=== PATIENT | male | born 1970 | race Caucasian/White ===

== ENCOUNTER 2017-03-10 08:41 | Day surgery (SDC) | payer OTHER ==
[~2017-03-10] VITALS: Ht 190.5 cm; Wt 168.0 kg
[~2017-03-10 08:41] MED LIST: HYDR30CR57 RC; SODIUM CHLORIDE 0.9% 1,000 ML IV ONE
[2017-03-10] MEDS ORDERED: METOCLOPRAMIDE HCL 5 MG/ML 2 ML VIAL IVP ONE (08:42)
[2017-03-10] MEDS ORDERED: PROPOFOL 1% 20 ML VIAL IVP ONE (08:42)
[2017-03-10] MEDS ORDERED: ONDANSETRON HCL 4 MG/2 ML VIAL IVP ONE (08:42)
[2017-03-10] MEDS ORDERED: LIDOCAINE HCL/PF 2% 5 ML VIAL IM ONE (08:42)
[2017-03-10] MEDS ORDERED: SODIUM CHLORIDE 0.9% 1,000 ML IV ONE (08:55)
[2017-03-10] MEDS ORDERED: FentaNYL CITRATE-PF 100 MCG/2 ML VIAL IVP PRN (11:30)
[2017-03-10] MEDS ORDERED: OXYGEN THERAPY IH SCH (11:30)
== END 2017-03-10 11:50 | disposition home or self-care (01) ==
LOC: SURGERY 08:41
PROVIDERS: ATTEND Internal Medicine Gastroenterology
DX: K62.1 Rectal polyp (principal); K64.2 Third degree hemorrhoids; K21.9 Gastro-esophageal reflux disease without esophagitis; E89.0 Postprocedural hypothyroidism; G47.33 Obstructive sleep apnea (adult) (pediatric); E66.9 Obesity, unspecified; F17.210 Nicotine dependence, cigarettes, uncomplicated; Z98.890 Other specified postprocedural states; Z87.898 Personal history of other specified conditions
CPT/HCPCS: 45380; 88305; J2405; J2704; J2765; J3490; J7030

== ENCOUNTER 2020-01-07 08:50 | Day surgery (SDC) | payer OTHER ==
[~2020-01-07] VITALS: Ht 193 cm; Wt 180.0 kg
[~2020-01-07 08:50] MED LIST changes: -SODIUM CHLORIDE 0.9% 1,000 ML IV ONE; +SODIUM CHLORIDE 0.9% 1,000 ML ONE
[2020-01-07] MEDS ORDERED: PROPOFOL 1% 20 ML VIAL IVP ONE (08:51)
[2020-01-07] MEDS ORDERED: LIDOCAINE/PF 2% 5 ML VIAL IM ONE (08:51)
[2020-01-07] MEDS ORDERED: SODIUM CHLORIDE 0.9% 1,000 ML IV ONE (09:00)
== END 2020-01-07 11:50 | disposition home or self-care (01) ==
LOC: SURGERY 08:50
PROVIDERS: ATTEND Internal Medicine Gastroenterology
DX: K29.50 Unspecified chronic gastritis without bleeding (principal); Z11.59 Encounter for screening for other viral diseases; F17.210 Nicotine dependence, cigarettes, uncomplicated; E66.01 Morbid (severe) obesity due to excess calories; Z79.899 Other long term (current) drug therapy; Z98.890 Other specified postprocedural states
CPT/HCPCS: 43239; 88305; 88312; 88313; C1769; J2704; J3490; J7030; U0003